=== PATIENT | female | born 1935 | race Caucasian/White ===

== ENCOUNTER → 2017-10-09 | Outpatient (CLI) | payer OTHER | LOC: FIMAGING 08:38 | PROVIDERS: ATTEND Internal Medicine Hematology & Oncology | DX: Z13.820 Encounter for screening for osteoporosis (principal); M81.0 Age-related osteoporosis without current pathological fracture; M85.80 Other specified disorders of bone density and structure, unspecified site; Z78.0 Asymptomatic menopausal state; Z85.038 Personal history of other malignant neoplasm of large intestine ==

== ENCOUNTER → 2018-08-23 | Outpatient (CLI) | payer OTHER | LOC: FIMAGING 09:26 | PROVIDERS: ATTEND Surgery | DX: D35.1 Benign neoplasm of parathyroid gland (principal); E21.0 Primary hyperparathyroidism | CPT/HCPCS: 78070; A9500 ==

== ENCOUNTER 2018-11-15 09:54 | Day surgery (SDC) | payer OTHER ==
[2018-11-15] MEDS ORDERED: LR 1,000 ML IV ONE (10:05)
--- NOTE | 2018-11-15 10:34 | PDANEPAE ---
ANE History of Present Illness parathyroidectomy ANE Past Medical History - Cardiovascular History Hx Hypertension: Yes Hx Arrhythmias: No Hx Chest Pain: No Hx Coronary Artery / Peripheral Vascular Disease: No Hx CHF / Valvular Disease: No Hx Palpitations: No - Pulmonary History Hx COPD: No Hx Asthma/Reactive Airway Disease: No Hx Recent Upper Respiratory Infection: No Hx Oxygen in Use at Home: No Hx Sleep Apnea: No Sleep Apnea Screening Result - Last Documented: Negative - Neurologic History Hx Cerebrovascular Accident: No Hx Seizures: No Hx Dementia: No - Endocrine History Hx Diabetes: No Hypothyroid: Yes Hyperthyroid: No Obesity: no Endocrine History Comment: hypothyroidism. hyperparathyroidism - Renal History Hx Renal Disorders: No - Liver History Hx Hepatic Disorders: No - Neurological & Psychiatric Hx Hx Neurological and Psychiatric Disorders: No - Cancer History Hx Cancer: Yes Cancer History Comment: colon ca 2015 - Congenital Disorder History Hx Congenital Disorders: No - GI History GERD: no Hx Gastrointestinal Disorders: Yes Gastrointestinal History Comment: hx of colon ca. hx of colonoscopy - Other Health History Other Health History: wears reading glasses. wears bilateral hearing aides. eczema as child - Chronic Pain History Chronic Pain: No - Surgical History Prior Surgeries: 06/19/16 colonoscopy with sigmoid mass with Yong. 01/2012 cataracts with Tj. T&A 194. right TKA 1977 ANE Review of Systems Review of Systems: - Exercise capacity Exercise capacity: >=4 METS METS (RN): 4 METS ANE Patient History - Allergies Allergies/Adverse Reactions: Sulfa (Sulfonamide Antibiotics) Allergy (Verified 10/23/18 12:26) Rash POLLENS Allergy (Uncoded 10/23/18 12:26) ITCHY EYES/RUNNY NOSE- summer pollens - Home Medications Home medications: home medication list seen and reviewed Home Medications: Multivitamins [Multivitamin (*)] 1 each PO DAILY 06/19/16 [Last Taken 11/08/18] Alendronate Sodium [Fosamax 70 MG (*)] 70 mg PO WE@0700 10/16/18 [Last Taken 08/23] Aspirin [Aspirin 81mg (*)] 81 mg PO DAILY 10/16/18 [Last Taken 11/08/18] Herbals/Supplements -Info Only 1 each PO DAILY 10/16/18 [Last Taken 11/08/18] Levothyroxine [Synthroid 50 mcg (*)] 50 mcg PO DAILY06 10/16/18 [Last Taken 09/23 06:30] - NPO status NPO Status: no food or drink >8 hours - Smoking Hx Smoking Status: Never smoked - Family Anes Hx Family Hx Anesthesia Complications: none ANE Labs/Vital Signs - Vital Signs Height: 162.56 cm Weight: 53.524 kg ANE Physical Exam - Airway Mallampati Score: Class 2 Mouth exam: normal dental/mouth exam - Pulmonary Pulmonary: no respiratory distress - Cardiovascular Cardiovascular: regular rate and rhythym - ASA Status ASA Status: II ANE Anesthesia Plan Anesthesia Plan: general endotracheal anesthesia
[2018-11-15] MEDS ORDERED: BUPIVACAINE/EPI 0.5% 30 ML SDV ONE (11:06)
[2018-11-15] MEDS ORDERED: fentaNYL 100 MCG/2 ML INJ ONE (11:33)
[2018-11-15] MEDS ORDERED: ONDANSETRON 4 MG/2 ML VIAL ONE (11:34)
[2018-11-15] MEDS ORDERED: ROCURONIUM 50 MG/5 ML VIAL ONE (11:34)
[2018-11-15] MEDS ORDERED: KETOROLAC 30 MG/1 ML SDV ONE (11:34)
[2018-11-15] MEDS ORDERED: DEXAMETHASONE 4 MG/ML VIAL ONE (11:34)
[2018-11-15] MEDS ORDERED: SUCCINYLCHOLINE CHLORIDE 200 MG/10 ML SYR IVP ONE (11:34)
[2018-11-15] MEDS ORDERED: LIDOCAINE 2% 5 ML SDV ONE (11:34)
[2018-11-15] MEDS ORDERED: PROPOFOL 200 MG/20 ML VIAL ONE (11:34)
--- NOTE | 2018-11-15 11:40 | PDHPUP ---
History & Physical Update H&P update statement: This history and physical update is based on an assessment of the patient which was completed after admission or registration (within 24 hours), but prior to the surgery/procedure. H&P update: H&P reviewed & patient examined, no change in patient's condition since H&P completed
--- NOTE | 2018-11-15 11:41 | POSTOPPROG ---
Post Op Note Date of Operation: 11/15/18 Surgeon: Sami Stokes Senior Technical Recruiter: Kelly Bartlett PA-C Anesthesiologist: Nate Purvis Anesthesia: GET(General Endotracheal) Pre-op Diagnosis: primary hyperparathyroidism Post-op Diagnosis: same Procedure: parathyroidectomy with ioPTH Inf/Abcess present in the surg proc area at time of surgery?: No EBL: Minimal Specimen(s): left lower neck clinical adenoma. large left lobe friable nodule - prev benign FNA
[2018-11-15] MEDS ORDERED: ePHEDrine SULFATE 25 MG/5 ML SYR ONE (12:18)
[2018-11-15] MEDS ORDERED: fentaNYL 100 MCG/2 ML INJ IVP PRN (13:31)
[2018-11-15] MEDS ORDERED: NALOXONE HCL 0.4 MG/ML INJ IVP PRN (13:31)
[2018-11-15] MEDS ORDERED: ONDANSETRON 4 MG/2 ML VIAL IVP PRN (13:31)
[2018-11-15] MEDS ORDERED: ALBUTEROL 3 ML DEYVIAL IH PRN (13:31)
--- NOTE | 2018-11-15 13:32 | POSTANESTH ---
Post Anesthetic Evaluation Cardiovascular Status: Normal, Stable Respiratory Status: Normal, Stable Level of Consciousness/Mental Status: Can Participate in Eval Pain Control: Adequate, Prn Tx Ordered Nausea/Vomiting Control: Adequate, Prn Tx Ordered Complications Possibly Related to Anesthesia: None Noted
[2018-11-15] MEDS ORDERED: HYDROCODONE/APAP 5/325 TAB PO PRN (14:31)
--- NOTE | 2018-11-15 14:38 | GOP ---
DATE OF OPERATION: 11/15/2018 SURGEON: Sami Stokes MD NEUROSURGEON: Sami Stokes MD PAINT PREPARER: Kelly Bartlett PA-C. ANESTHESIA: General. ANESTHESIOLOGIST: Dr. Purvis. PREOPERATIVE DIAGNOSIS: Primary hyperparathyroidism. POSTOPERATIVE DIAGNOSIS: Primary hyperparathyroidism. PROCEDURE PERFORMED: Parathyroidectomy with intraoperative PTH monitoring, left thyroid lobe biopsy. FINDINGS: INDICATIONS: 83-year-old female with progressive osteoporosis and multiple constitutional symptoms. Preoperative localization studies suggest a left lower neck clinical adenoma. She is undergoing par athyroidectomy at this time. Risks and benefits were explained of bleeding, infection, persistent an d recurrent hyperparathyroidism, hypoparathyroidism, recurrent laryngeal nerve injury, need for addit ional surgical intervention. All questions were answered. She desires to proceed. A surgical davi tant is standard, necessary, and customary for the safe performance of this procedure. DESCRIPTION OF PROCEDURE: After general anesthesia was induced, the neck was pre-injected with 0.5% Marcaine with epinephrine. A low collar incision was created. The platysma muscle was as were the midline strap muscles. The left anival-neck cavity was initially unroofed. A previously biop sied large calcified, friable nodule was present. With thyroid manipulation, this nodule was easily disrupted. Portions of this were excised allowing for better anival-neck exposure. Upon elevation of the thyroid lobe into the operative field, a lower pole clinical adenoma was easily identified as sug gested on preoperative imaging studies. The approximately 2 cm gland was circumferentially dissected back toward its feeding vasculature and excised using electrocautery. Frozen section confirmed evid ence of hypercellular tissue measuring approximately 750 mg. Further neck exploration revealed a nor mal-appearing small upper pole gland just anterior to the recurrent laryngeal nerve, crossing by the inferior thyroid artery. The contralateral neck was dissected out. The multinodular thyroid lobe wa s elevated up in the operative field. Upper and lower pole glands were found abutting one another on the lower most aspect of the thyroid lobe. The upper pole being completely small, as on the contral ateral side the lower being slightly larger yet fatty in appearance. These glands were left intact. Time was spent obtaining satisfactory hemostasis at the raw cut area of the left thyroid nodule. Ar ista was placed throughout the anival-neck cavity. Satisfactory hemostasis was assured. The neck was closed in layers with absorbable sutures, followed by Dermabond. [facility] ext[facility]ated uneventfully. Preoperative PTH values were 230, 5, 10, and 15-minute values were 53, 42, 41. /[id number]/MODL
[2018-11-15 15:06] VITALS: BP 136/83
== END 2018-11-15 15:35 | disposition home or self-care (01) ==
LOC: FSGY 09:54 → UNDOADMOB 09:54 → F3E 09:54 → EDSTATUS 10:00 → FSGY 15:35 → UNDODISOB 15:35
PROVIDERS: ATTEND Surgery
PROC: 0GBG0ZZ Excision of Left Thyroid Gland Lobe, Open Approach (ICD-10-PCS; principal; 2018-11-15 11:45)
PROC: 0GTR0ZZ Resection of Parathyroid Gland, Open Approach (ICD-10-PCS; principal; 2018-11-15 11:45)
DX: E21.0 Primary hyperparathyroidism (principal); E04.1 Nontoxic single thyroid nodule; M81.0 Age-related osteoporosis without current pathological fracture; I83.228 Varicose veins of left lower extremity with both ulcer of other part of lower extremity and inflammation; L97.921 Non-pressure chronic ulcer of unspecified part of left lower leg limited to breakdown of skin; Z85.038 Personal history of other malignant neoplasm of large intestine; Z96.651 Presence of right artificial knee joint
CPT/HCPCS: J0330; J1100; J1885; J2405; J2704; J3010